=== PATIENT | female | born 1995 | race African-American/Black ===

== ENCOUNTER 2019-01-04 18:22 | Emergency (ER) | payer MEDICAID | END 2019-01-04 19:25 | disposition home or self-care (01) | LOC: NAV ERS 18:22 | DX: O23.41 Unspecified infection of urinary tract in pregnancy, first trimester (principal); O99.89 Other specified diseases and conditions complicating pregnancy, childbirth and the puerperium; R10.31 Right lower quadrant pain; R11.0 Nausea; Z3A.11 11 weeks gestation of pregnancy | CPT/HCPCS: 99283 ==

== ENCOUNTER 2019-03-07 10:01 | Outpatient (CLI) | payer MEDICAID ==
--- NOTE | 2019-03-07 14:59 | ULT ---
OB ULTRASOUND: INDICATION: Size and dates. FINDINGS: There is a single viable intrauterine . Gestational age by ultrasound is 20 weeks 1 day. Biometry measurements are consistent. BPD 20 weeks 1 day HC 20 weeks 1 day AC 20 weeks 1 day FL 20 weeks 3 days EFW: 348 gm, 52th percentile. Placenta: Anterior. Presentation: Vertex. heart rate: 150 b.p.m. Amniotic fluid: Within normal range. MICKEY: 15.6 cm. anatomy: Intracranial contents, 4 chamber heart, stomach, kidneys, cord insertion, bladder, spine, facial feat ures, extremities, and 3-vessel cord were all imaged. No abnormality identified. IMPRESSION: A 20-week 1 day gestation by ultrasound. No abnormality identified. POS: OFF
== END 2019-03-07 10:02 | disposition home or self-care (01) ==
LOC: NAV ULT 10:01
PROVIDERS: ATTEND Family Medicine
DX: Z34.02 Encounter for supervision of normal first pregnancy, second trimester (principal); Z3A.20 20 weeks gestation of pregnancy
CPT/HCPCS: 76805

== ENCOUNTER 2019-03-11 23:13 | Emergency (ER) | payer MEDICAID | END 2019-03-11 23:51 | disposition home or self-care (01) | LOC: NAV ERS 23:13 | DX: O99.89 Other specified diseases and conditions complicating pregnancy, childbirth and the puerperium (principal); R10.12 Left upper quadrant pain; O99.512 Diseases of the respiratory system complicating pregnancy, second trimester; J45.909 Unspecified asthma, uncomplicated ==

== ENCOUNTER 2022-05-24 08:16 | Emergency (ER) | payer OTHER ==
[2022-05-24] MEDS ORDERED: Ibuprofen 800 MG TAB ONE (08:59)
== END 2022-05-24 09:40 | disposition home or self-care (01) ==
LOC: NAV ERS 08:16
DX: M79.651 Pain in right thigh (principal); M79.652 Pain in left thigh; M25.562 Pain in left knee; J45.909 Unspecified asthma, uncomplicated
CPT/HCPCS: 85379; 99283